=== PATIENT | male | born 1965 | race Hispanic/Latino ===

== ENCOUNTER 2016-07-10 13:53 | Emergency (ER) | payer OTHER ==
[2016-07-10 14:03] VITALS: BP 138/89
--- NOTE | 2016-07-10 14:36 | ED GENERAL ADULT ---
History of Present Illness General Chief Complaint: General Adult Stated Complaint: MULTIPLE COMPLAINTS Source: patient Exam Limitations: no limitations Vital Signs & Intake/Output Vital Signs & Intake/Output Vital Signs Date Time Temp Pulse Resp B/P Pulse O2 O2 Flow FiO2 Ox Delivery Rate 07/10 1403 98.2 94 20 138/89 95 Room Air Allergies Coded Allergies: No Known Allergies (07/10/16) Triage Note: PT STATES 1 MONTH OF CHEST, ABDOMINAL AND LEFT SIDE OF HEAD DISCOMFORT. YESTERDAY AND TODAY WITH TINGLING ON RIGHT SIDE OF FACE AND BUTTOCKS. PT STATES HE FEELS ANXIOUS. SEEN AT [facility] ON WEDNESDAY FOR SAME PROBLEM Triage Nurses Notes Reviewed? yes Onset: Gradual Duration: week(s): (3-4) Timing: recent history Injury Environment: home Severity: mild No Modifying Factors: none HPI: This is a 51-year-old male with no significant past medical history presents here with chief complaint of not feeling well for the past one month. Patient reports a 10 pound weight loss, left upper quadrant abdominal pain nausea but no vomiting. He denies any difficulty with stool. He states that he's been having chronic headaches and then occasionally gets numbness and tingling in his right arm and right leg. Last week he went to [facility] where he states they told nothing was wrong. He cannot get an appointment for next 3 months. He is worried that there is something going on in his abdomen or in his stomach. He is also worried there certainly may be similar in his brain. Denies any difficult with speech or swallowing. Denies any difficulty with ambulation. No known family history. He is a nonsmoker nondrinker. Past History Travel History Traveled to [place] past 21 day No Medical History Any Pertinent Medical History? see below for history Cardiovascular: hyperlipidemia Surgical History Surgical History: non-contributory Psychosocial History What is your primary language Croatian Tobacco Use: Never used ETOH Use: denies use Illicit Drug Use: denies illicit drug use Family History Hx Contributory? No Review of Systems Review of Systems Constitutional: Reports: unexplained weight loss. Denies: chills, fever. EENTM: Reports: no symptoms. Respiratory: Denies: cough, short of breath. Cardiovascular: Denies: chest pain. GI: Reports: abdominal pain, nausea. Denies: vomiting. Genitourinary: Denies: dysuria. Musculoskeletal: Reports: no symptoms. Skin: Reports: no symptoms. Neurological/Psychological: Reports: anxiety, headache. Hematologic/Endocrine: Denies: bruising, bleeding, polyuria, polydipsia. Immunologic/Allergic: Denies: splenectomy. All Other Systems: Reviewed and Negative Physical Exam Physical Exam General Appearance: well developed/nourished, alert, awake Head: atraumatic, normal appearance Eyes: Bilateral: normal appearance, PERRL, EOMI. Ears, Nose, Throat: normal pharynx, normal ENT inspection Neck: normal inspection, full range of motion Respiratory: normal breath sounds, chest non-tender, no respiratory distress Cardiovascular: regular rate/rhythm Peripheral Pulses: 2+ radial (R), 2+ radial (L) Gastrointestinal: normal bowel sounds, soft, non-tender Back: normal inspection, normal range of motion Extremities: normal inspection, normal capillary refill, normal range of motion, no edema Neurologic/Psych: no motor/sensory deficits, awake, alert, oriented x 3 Skin: intact, normal color, warm/dry Core Measures ACS in differential dx? No CVA/TIA Diagnosis: No Severe Sepsis Present: No Septic Shock Present: No Progress Differential Diagnoses I considered the following diagnoses in my evaluation of the patient: [ANXIETY, ELECTROLYTE DISTURBANCE, GERD, PUD, CVA, INTRACRANIAL MASS] Plan of Care: Orders Procedure Date/time Status URINALYSIS 07/10 1435 Active THYROID STIMULATING HORMONE 07/10 1435 Active TROPONIN LEVEL 07/10 1435 Active LIPASE 07/10 1435 Active FREE T4 07/10 1435 Active COMPREHENSIVE METABOLIC PANEL 07/10 1435 Active CBC WITHOUT DIFFERENTIAL 07/10 1435 Complete AMYLASE 07/10 1435 Active EKG 07/10 1404 Active Laboratory Tests 07/10/16 1442: Anion Gap 10, Estimated GFR > 60, BUN/Creatinine Ratio 11.3, Glucose 98, Calcium 9.6, Total Bilirubin 0.5, AST 35, ALT 69, Alkaline Phosphatase 115, Troponin I < 0.01, Total Protein 7.9, Albumin 4.5, Globulin 3.4, Albumin/Globulin Ratio 1.3, Amylase 56, Lipase 63, TSH Pending, Free T4 2.02 H, CBC w Diff NO MAN DIFF REQ, RBC 5.45, MCV 85.3, MCH 28.4, RDW 14.5, MPV 9.1, Gran % 75.7 H, Lymphocytes % 18.3 L, Monocytes % 5.3, Eosinophils % 0.3, Basophils % 0.4, Absolute Granulocytes 6.5, Absolute Lymphocytes 1.6, Absolute Monocytes 0.5, Absolute Eosinophils 0, Absolute Basophils 0, PUBS MCHC 33.3 LABS, EKG, CT HEAD ORDERED. (ZEINAB UPTON,DEBORAH) Diagnostic Imaging: Viewed by Me: CT Scan. Discussed w/RAD: CT Scan. Initial ED EKG: NSR Comments: PATIENT: KAYLA KHAN PRESENT AGE: 51 PATIENT ACCOUNT NO: [id number] : 66 LOCATION: [facility] ORDERING PHYSICIAN: DEBORAH ARRIOLA MD SERVICE DATE: 07/10/16 EXAM TYPE: CAT - CT HEAD WO IV CONTRAST EXAMINATION: CT HEAD WITHOUT CONTRAST CLINICAL INFORMATION: Right-sided weakness and numbness. COMPARISON: None TECHNIQUE: Contiguous axial imaging was performed from the skull base to vertex without intravenous administration of contrast. DLP: 600.71 mGy-cm FINDINGS: There is no evidence of acute intracranial hemorrhage or territorial infarction. No abnormal mass effect or midline shift is seen. Marion to white matter differentiation is well preserved. No extra-axial fluid collections are identified. The ventricles are normal in size. There is no abnormal attenuation within the brain parenchyma. The osseous structures and soft tissues are normal. The mastoid air cells and visualized portions of the paranasal sinuses are fairly well aerated. IMPRESSION: No acute intracranial pathology. DICTATED BY: ABDULAZIZ VEGAS MD DATE/TIME DICTATED:07/10/161514 HOT SAW HELPER:RADHA DATE/TIME TRANSCRIBED:07/10/161514 CONFIDENTIAL, DO NOT COPY WITHOUT APPROPRIATE AUTHORIZATION. <Electronically signed in Other Vendor System> SIGNED BY: ABDULAZIZ VEGAS MD 1520 Departure Departure Time of Disposition: 1540 Disposition: HOME OR SELF CARE Condition: Stable Clinical Impression Primary Impression: Anxiety Referrals: PATIENT HAS NO PRIMARY CARE DR (PCP/Family) Additional Instructions: FOLLOW UP WITH OUTPATIENT ULTRASOUND. RETURN NEEDED. Departure Forms: Customer Survey General Discharge Information Critical Care Note Critical Care Note Critical Care Time: non-applicable
[2016-07-10 14:51] LABS: ABSOLUTE BASOPHIL COUNT 0 /CUMM (0.0-0.2); ABSOLUTE EOSINOPHIL COUNT 0 /CUMM (0.0-0.7); ABSOLUTE GRANULOCYTE CT 6.5 /CUMM (1.4-6.5); ABSOLUTE LYMPH COUNT 1.6 /CUMM (1.2-3.4); ABSOLUTE MONOCYTE COUNT 0.5 /CUMM (0.10-0.60); BASOPHIL % 0.4 % (0.0-2.0); EOSINOPHIL % 0.3 % (0-5); GRANULOCYTE % 75.7 % (42.2-75.2); HEMATOCRIT 46.5 % (42-52); MEAN CORPUSCULAR HGB 28.4 PG (27.0-31.0); MEAN CORPUSCULAR HGB CONC 33.3 G/DL (33.0-37.0); MEAN CORPUSCULAR VOLUME 85.3 FL (80.0-94.0); MEAN PLATELET VOLUME 9.1 FL (7.4-10.4); PLATELET COUNT 214 /CUMM (130-400); RBC DISTRIBUTION WIDTH 14.5 % (11.5-14.5); RED BLOOD CELL CT 5.45 /CUMM (4.70-6.10); WHITE BLOOD CELL COUNT 8.6 /CUMM (4.8-10.8)
--- NOTE | 2016-07-10 15:20 | CT SCAN REPORT ---
EXAMINATION: CT HEAD WITHOUT CONTRAST CLINICAL INFORMATION: Right-sided weakness and numbness. COMPARISON: None TECHNIQUE: Contiguous axial imaging was performed from the skull base to vertex without intravenous administration of contrast. DLP: 600.71 mGy-cm FINDINGS: There is no evidence of acute intracranial hemorrhage or territorial infarction. No abnormal mass effect or midline shift is seen. Marion to white matter differentiation is well preserved. No extra-axial fluid collections are identified. The ventricles are normal in size. There is no abnormal attenuation within the brain parenchyma. The osseous structures and soft tissues are normal. The mastoid air cells and visualized portions of the paranasal sinuses are fairly well aerated. IMPRESSION: No acute intracranial pathology.
== END 2016-07-10 16:02 ==
LOC: ERH 13:53
PROVIDERS: Emergency Medicine
DX: R07.89 Other chest pain (principal); F41.9 Anxiety disorder, unspecified
CPT/HCPCS: 93005; 93010

== ENCOUNTER 2016-08-06 16:49 | Emergency (ER) | payer OTHER ==
[2016-08-06 17:29] LABS: ABSOLUTE BASOPHIL COUNT 0.1 /CUMM (0.0-0.2); ABSOLUTE EOSINOPHIL COUNT 0.1 /CUMM (0.0-0.7); ABSOLUTE GRANULOCYTE CT 6.7 /CUMM (1.4-6.5); ABSOLUTE LYMPH COUNT 3.3 /CUMM (1.2-3.4); ABSOLUTE MONOCYTE COUNT 0.5 /CUMM (0.10-0.60); BASOPHIL % 0.8 % (0.0-2.0); EOSINOPHIL % 1.1 % (0-5); GRANULOCYTE % 62.9 % (42.2-75.2); HEMATOCRIT 44.8 % (42-52); MEAN CORPUSCULAR HGB 28.8 PG (27.0-31.0); MEAN CORPUSCULAR HGB CONC 33.7 G/DL (33.0-37.0); MEAN CORPUSCULAR VOLUME 85.2 FL (80.0-94.0); RBC DISTRIBUTION WIDTH 14.8 % (11.5-14.5); RED BLOOD CELL CT 5.26 /CUMM (4.70-6.10)
[2016-08-06 17:36] LABS: WHITE BLOOD CELL COUNT 10.6 /CUMM (4.8-10.8)
[2016-08-06] MEDS ORDERED: BUSPIRONE HCL7.5 M1 PO (18:17)
--- NOTE | 2016-08-06 18:38 | ED CARDIAC/CP/PALPITATIONS ---
History of Present Illness General Chief Complaint: General Adult Stated Complaint: MULTPLE COMPLAINTS Source: patient, family, old records, vessel captain Exam Limitations: language barrier Vital Signs & Intake/Output Vital Signs & Intake/Output Vital Signs Date Time Temp Pulse Resp B/P Pulse O2 O2 Flow FiO2 Ox Delivery Rate 08/06 193 75 18 125/68 98 Room Air 08/06 1909 Room Air 08/06 1708 98.2 67 22 118/74 97 Room Air Allergies Coded Allergies: No Known Allergies (07/10/16) Reconcile Medications Buspirone HCl 7.5 MG TABLET 1 TAB PO PRN ANXIETY (Reported) Triage Note: HERE WITH SIGNIFICANT OTHER CO ANXIETY AND CP 1 HR AGO. VAGUE CO Triage Nurses Notes Reviewed? yes HPI: Patient here with significant other, multiple medical complaints. He has several months of intermittent chest pain and tingling in his hands, feeling anxious, epigastric abdominal pain that is occasionally related to food. She denies any shortness of breath. He was seen by his primary care doctor for this last week and sent for blood tests and he does not know the results yet. He was also seen here last month for similar symptoms along with symptoms requiring a head CT which was negative as well. He complains of increased stress and feeling as though he can't relax. He is Gabonese-speaking and this exam and history was done via vessel captain (JULIETA RODRIGUEZ) Past History Travel History Traveled to [place] past 21 day No Medical History Any Pertinent Medical History? see below for history Neurological: NONE EENT: NONE Cardiovascular: hyperlipidemia Respiratory: NONE Gastrointestinal: NONE Hepatic: NONE Renal: NONE Musculoskeletal: NONE Psychiatric: anxiety Endocrine: NONE Surgical History Surgical History: none Psychosocial History What is your primary language Gabonese Tobacco Use: Quit >30 days ago Family History Hx Contributory? No (JULIETA RODRIGUEZ) Review of Systems Review of Systems Constitutional: Reports: see HPI. EENTM: Reports: no symptoms. Respiratory: Reports: no symptoms. Cardiovascular: Reports: see HPI. GI: Reports: no symptoms. Genitourinary: Reports: no symptoms. Musculoskeletal: Reports: no symptoms. Skin: Reports: no symptoms. Neurological/Psychological: Reports: no symptoms. Hematologic/Endocrine: Reports: no symptoms. Immunologic/Allergic: Reports: no symptoms. All Other Systems: Reviewed and Negative (JULIETA RODRIGUEZ) Physical Exam Physical Exam Respiratory: normal breath sounds, chest non-tender, no respiratory distress Cardiovascular: regular rate/rhythm Comments: Well-developed well-nourished person in no acute distress HEENT: Normal EENT exam, extraocular motion intact, no nystagmus. Pupils equally round and reactive to light. Nose is atraumatic. External auditory canal and Tympanic membranes clear. Pharynx normal. No swelling or edema. Neck: Supple, no lymphadenopathy, normal range of motion without pain or tenderness Back: Nontender, no CVA tenderness. Full range of motion Cardiovascular: Regular rate and rhythms no murmurs, normal JVP Respiratory: Chest nontender. No respiratory distress. Breath sounds clear to auscultation bilaterally Abdomen: Soft, nontender nondistended, no appreciable organomegaly. Normal bowel sounds. No ascites Extremity: No edema, no calf tenderness to palpation, normal and equal pulses. Neuro: Alert oriented x3, motor sensory normal, cranial nerves II through XII grossly intact. Skin: No appreciable rash on exposed skin, skin is warm and dry. Psych: Mood and affect is normal, memory and judgment is normal. Core Measures ACS in differential dx? Yes Severe Sepsis Present: No Septic Shock Present: No (FRIDA JOSHI,JULIETA) Progress Differential Diagnosis: AMI, aortic dissection, atrial fibrillation, cholecystitis, CHF/pulm edema, costochondritis, hyperkalemia, hypovolemia, hyperthyroid, hyperventilation, intracranial hemorrhage, musculoskeletal pain, myocarditis, pancreatitis, pericarditis, pneumonia, pneumothorax, PSVT, pulmonary embolism, PUD/GERD, PVCs/PACs, respiratory failure, rib fracture, sepsis, unstable angina, V-fib/V-Tach, WPW syndrome Plan of Care: Orders Procedure Date/time Status TROPONIN LEVEL 08/06 1709 Complete COMPREHENSIVE METABOLIC PANEL 08/06 1709 Complete CBC WITHOUT DIFFERENTIAL 08/06 1709 Complete EKG 08/06 1707 Active Laboratory Tests 08/06/16 1720: Anion Gap 12, Estimated GFR > 60, BUN/Creatinine Ratio 10.0, Glucose 92, Calcium 9.7, Total Bilirubin 0.4, AST 31, ALT 52, Alkaline Phosphatase 129 H, Troponin I < 0.01, Total Protein 7.7, Albumin 4.5, Globulin 3.2, Albumin/Globulin Ratio 1.4, CBC w Diff NO MAN DIFF REQ, RBC 5.26, MCV 85.2, MCH 28.8, RDW 14.8 H, MPV , Gran % 62.9, Lymphocytes % 30.8, Monocytes % 4.4, Eosinophils % 1.1, Basophils % 0.8, Absolute Granulocytes 6.7 H, Absolute Lymphocytes 3.3, Absolute Monocytes 0.5, Absolute Eosinophils 0.1, Absolute Basophils 0.1, PUBS MCHC 33.7 Initial ED EKG: NSR, rate (67), no ST T wave changes Prior EKG: unchanged Rhythm Strip: normal sinus rhythm Comments: Work up is negative EKG is unremarkable. Likely patient has anxiety, this was also suspected on his last visit to the ER and he was given antianxiety medication which he states he has not taken. He has follow-up with his primary care doctor to GO OVER test results as well. I do not feel as though anything serious or dangerous going on at this time and feel patient is safe to go home for further workup with his primary care doctor. He was recommended take the antianxiety medication that was prescribed to him previously. (JULIETA RODRIGUEZ) Departure Departure Disposition: HOME OR SELF CARE Condition: Stable Clinical Impression Primary Impression: Anxiety Referrals: OSCAR CHEN MD PATIENT HAS NO PRIMARY CARE DR (PCP/Family) Additional Instructions: Take medication as needed for anxiety Please follow up with your primary care doctor Departure Forms: Customer Survey General Discharge Information (JULIETA RODRIGUEZ) PA/DEMAND INSPECTOR Co-Sign Statement Statement: ED Attending supervision documentation- [] I saw and evaluated the patient. I have also reviewed all the pertinent lab results and diagnostic results. I agree with the findings and the plan of care as documented in the PA's/DEMAND INSPECTOR's documentation. x I have reviewed the ED Record and agree with the PA's/DEMAND INSPECTOR's documentation. [] Additions or exceptions (if any) to the PAs/DEMAND INSPECTOR's note and plan are summarized below: [] (PER UPTON,SHASHI) Critical Care Note Critical Care Note Critical Care Time: non-applicable (JULIETA RODRIGUEZ)
[2016-08-06 19:35] VITALS: BP 125/68
== END 2016-08-06 19:36 ==
LOC: ERH 16:49
PROVIDERS: Emergency Medicine
DX: F41.9 Anxiety disorder, unspecified (principal); R07.9 Chest pain, unspecified
CPT/HCPCS: 93005; 93010